=== PATIENT | female | born 1960 | race African-American/Black ===

== ENCOUNTER 2017-03-14 09:52 | Emergency (ER) | payer OTHER ==
[~2017-03-14] VITALS: Ht 165.1 cm; Wt 76.7 kg
[~2017-03-14 09:52] MED LIST: HYDR12.53 PO; HYDR453.4 TP; QUET50TA5 PO; SULF1TAB24 PO; TRAM-48 PO
[2017-03-14 09:57] VITALS: BP 145/94
--- NOTE | 2017-03-14 11:14 | PHYS DOC ---
Past Medical History Past Medical History: Anxiety, Hypertension, Other Additional Past Medical Histor: CHRONIC H/A Past Surgical History: No Surgical History Alcohol Use: None Drug Use: None Adult General Chief Complaint Chief Complaint: SKIN RASH/ABSCESS HPI HPI Patient is a 56 year old female presents emergency department stating that she was out pulling poison neal next to her back when she obtained some on her left forearm, left lower abdomen area, and right face. She states that she has been placing antibiotic ointment over the areas with no relief. She denies any drainage or discharge coming from the site. Patient does have bruising noted to the left forearm area. She is unsure how this occurred. She denies any falls traumas or any pain or discomfort in that area. Review of Systems Review of Systems Constitutional: Denies fever or chills [] Eyes: Denies change in visual acuity, redness, or eye pain [] HENT: Denies nasal congestion or sore throat [] Respiratory: Denies cough or shortness of breath [] Cardiovascular: No additional information not addressed in HPI [] GI: Denies abdominal pain, nausea, vomiting, bloody stools or diarrhea [] : Denies dysuria or hematuria [] Musculoskeletal: Denies back pain or joint pain. Bruising or discoloration noted to the left forearm. Integument: rash denies skin lesions [] Neurologic: Denies headache, focal weakness or sensory changes [] Endocrine: Denies polyuria or polydipsia [] Allergies Allergies Allergies Coded Allergies Type Severity Reaction Last Updated Verified Penicillins Allergy Intermediate hives 02/23/15 Yes Physical Exam Physical Exam Constitutional: Well developed, well nourished, no acute distress, non-toxic appearance. [] HENT: Normocephalic, atraumatic, bilateral external ears normal, oropharynx moist, no oral exudates, nose normal. [] Eyes: PERRLA, EOMI, conjunctiva normal, no discharge. [] Neck: Normal range of motion, no tenderness, supple, no stridor. [] Cardiovascular:Heart rate regular rhythm, no murmur [] Lungs & Thorax: Bilateral breath sounds clear to auscultation [] Abdomen: Bowel sounds normal, soft, no tenderness, no masses, no pulsatile masses. [] Skin: Warm, dry, no erythema, patient with pustular type rash noted on the left lower abdomen area. Patient with pustular area noted on the right jawline. Patient with bruising noted to the left forearm. Back: No tenderness Extremities: No tenderness, no cyanosis, no clubbing, ROM intact, no edema. Left radial pulse 2+ cap refill brisk less than 2 seconds. Neurologic: Alert and oriented X 3, normal motor function, normal sensory function, no focal deficits noted. [] Psychologic: Affect normal, judgement normal, mood normal. [] Current Patient Data Vital Signs Vital Signs Date Time Temp Pulse Resp B/P (MAP) Pulse Ox O2 Delivery O2 Flow Rate FiO2 03/14/17 09:57 97.7 55 18 98 Room Air 97.7 EKG EKG [] Radiology/Procedures Radiology/Procedures [][facility] [address] [place] [address] IMAGING REPORT Signed PATIENT: NINO DERAS ACCOUNT: [id number] : 1960 LOCATION: ER AGE: 56 SEX: F EXAM STATUS: REG ER ORD. PHYSICIAN: JAN ALFORD APRN REASON: bruising and discoloration PROCEDURE: FOREARM LEFT Indication bruising. Swelling. No history of injury. AP and lateral views of the left forearm were obtained. No bony abnormality is seen DICTATED and SIGNED BY: ISH HER MD DATE: 03/14/17 1112 CC: JAN ALFORD APRN; DOLLY PRUETT MD ~ Course & Med Decision Making Course & Med Decision Making Pertinent Labs and Imaging studies reviewed. (See chart for details) X-rays were negative for any bony abnormalities. Patient will be discharged home with prednisone with recommendations to use Benadryl if she has any itching or irritation. Patient will also be encouraged to use calamine lotion over the areas. The bruising area on the left forearm recommended ice packs on 20 minutes off 20 minutes several times a day. Tylenol or ibuprofen for pain and discomfort. Also recommended following up with her primary care physician in the next week. Patient was provided with signs and symptoms to return back to emergency department. Patient agrees with discharge instructions, treatment regimens and follow-up recommendations. [] Dragon Disclaimer Dragon Disclaimer This electronic medical record was generated, in whole or in part, using a voice recognition dictation system. Departure Departure Impression: Primary Impression: Contact dermatitis Disposition: 01 HOME, SELF-CARE Condition: STABLE Referrals: DOLLY PRUETT MD (PCP) Patient Instructions: Contact Dermatitis, [id number] Additional Instructions: Your x-rays are negative for any bony abnormalities. You may place ice packs on the area on the left forearm on 20 minutes off 20 minutes several times a day to help with pain and discomfort. This will also help with swelling. Medication as prescribed. You may also take Benadryl 25 mg every 6 hours. This medication will cause drowsiness do not take any be alert and oriented. Calamine lotion may be placed over the blistered areas. Follow-up to primary care physician in the next week. Return back to emergency percent symptoms become worse. Scripts Prednisone (PREDNISONE) 20 Mg Tablet 40 MG PO DAILY, #14 TAB Prov: JAN ALFORD APRN 03/14/17 JAN ALFORD APRN Mar 14, 2017 11:14
[2017-03-14] MEDS ORDERED: PRED20TA PO (11:20)
== END 2017-03-14 11:25 | disposition home or self-care (01) ==
LOC: ER 09:52
DX: L25.9 Unspecified contact dermatitis, unspecified cause (principal); I10 Essential (primary) hypertension; F41.9 Anxiety disorder, unspecified; G89.29 Other chronic pain; Z88.0 Allergy status to penicillin
CPT/HCPCS: 73090; 99284

== ENCOUNTER 2017-04-02 04:08 | Emergency (ER) | payer OTHER ==
[~2017-04-02] VITALS: Ht 165.1 cm; Wt 68.0 kg
[~2017-04-02 04:08] MED LIST changes: +PRED20TA PO
[2017-04-02 04:23] LABS: BILIRUBIN,URINE NEGATIVE (NEG); GLUCOSE,URINE NEGATIVE (NEG); NITRITE,URINE NEGATIVE (NEG); PH,URINE 6.5; PROTEIN,URINE NEGATIVE (NEG-TRACE); UROBILINOGEN,URINE 0.2 mg/dL (0.2 mg/dL)
--- NOTE | 2017-04-02 04:24 | PHYS DOC ---
Past Medical History Past Medical History: Anxiety, Hypertension, Other Additional Past Medical Histor: CHRONIC H/A Past Surgical History: No Surgical History Alcohol Use: None Drug Use: None Adult General Chief Complaint Chief Complaint: ABDOMINAL PAIN HPI HPI Patient is a 56 year old female who presents with burning and painful urination. Started 2 days ago and has worsened. Some back pain. No nausea or vomiting. No fever. No other complaints. No diarrhea. Review of Systems Review of Systems Constitutional: Denies fever or chills Eyes: Denies change in visual acuity, redness, or eye pain HENT: Denies nasal congestion or sore throat Respiratory: Denies cough or shortness of breath Cardiovascular: No chest pain GI: lower abdominal pain, No nausea, vomiting, bloody stools or diarrhea : Dysuria and frequency; no hematuria. Musculoskeletal: Denies back pain or joint pain Integument: Denies rash or skin lesions Neurologic: Denies headache, focal weakness or sensory changes Allergies Allergies Allergies Coded Allergies Type Severity Reaction Last Updated Verified Penicillins Allergy Intermediate hives 02/23/15 Yes Physical Exam Physical Exam Constitutional: Well developed, well nourished, no acute distress, non-toxic appearance. HENT: Normocephalic, atraumatic, bilateral external ears normal, oropharynx moist, no oral exudates, nose normal. Eyes: PERRLA, EOMI, conjunctiva normal, no discharge. Neck: Normal range of motion, no tenderness, supple, no stridor. Cardiovascular:Heart rate regular rhythm, no murmur Lungs & Thorax: Bilateral breath sounds clear to auscultation Abdomen: Bowel sounds normal, soft, no tenderness, no masses, no pulsatile masses. Skin: Warm, dry, no erythema, no rash. Back: No tenderness, no CVA tenderness. Extremities: No tenderness, no cyanosis, no clubbing, ROM intact, no edema. Neurologic: Alert and oriented X 3, normal motor function, normal sensory function, no focal deficits noted. Psychologic: Affect normal, judgement normal, mood normal. Current Patient Data Lab Values Laboratory Tests Test 04/02/17 04:19 Urine Collection Type Unknown Urine Color Yellow Urine Clarity Cloudy Urine pH 6.5 Urine Specific Isabella 1.025 Urine Protein Negative mg/dL (NEG-TRACE) Urine Glucose (UA) Negative mg/dL (NEG) Urine Ketones (Stick) Negative mg/dL (NEG) Urine Blood Negative (NEG) Urine Nitrite Negative (NEG) Urine Bilirubin Negative (NEG) Urine Urobilinogen Dipstick 0.2 mg/dL (0.2 mg/dL) Urine Leukocyte Esterase Small (NEG) Urine RBC 0 /HPF (0-2) Urine WBC 5-10 /HPF (0-4) Urine Squamous Epithelial Cells Many /LPF Urine Amorphous Sediment Present /HPF Urine Bacteria Moderate /HPF (0-FEW) Urine Mucus Marked /LPF Course & Med Decision Making Course & Med Decision Making Pertinent Labs reviewed. (See chart for details) Evaluated patient upon arrival. Abdomen soft with no evidence of acute surgical abdomen. UA sent. AT 0430 AM UA positive. Dosed with Macrobid here po. To follow up with PCP. I have spoken with the patient and/or caregivers. I have explained the patient' s condition, diagnosis and treatment plan based on the information available to me at this time. I have answered the patient's and/or caregiver's questions and addressed any concerns. The patient and/or caregivers have as good an understanding of the patient's diagnosis, condition and treatment plan as can be expected at this point. The patient's condition is stable and appropriate for discharge from the emergency department. The patient will pursue further outpatient evaluation with the primary care physician or other designated or consulting physician as outlined in the discharge instructions. The patient and/or caregivers are agreeable to this plan of care and follow-up instructions have been explained in detail. The patient and/or caregivers have received these instructions in written format and have expressed an understanding of the discharge instructions. The patient and/or caregivers are aware that any significant change in condition or worsening of symptoms should prompt an immediate return to this or the closest emergency department or a call to 911. Dragon Disclaimer Dragon Disclaimer This electronic medical record was generated, in whole or in part, using a voice recognition dictation system. Departure Departure Impression: Primary Impression: Urinary tract infection Disposition: HOME, SELF-CARE Condition: STABLE Referrals: DOLLY PRUETT MD (PCP) Scripts Nitrofurantoin Monohyd/M-Cryst (MACROBID 100 MG CAPSULE) 100 Mg Capsule 1 CAP PO BID, #14 CAP Prov: YESSENIA KABA MD 04/02/17 YESSENIA KABA MD Apr 02, 2017 04:24
[2017-04-02 04:32] LABS: RBC,URINE 0 /HPF (0-2)
[2017-04-02 04:33] LABS: BACTERIA,URINE MODERATE /HPF (0-FEW); SQUAMOUS EPITHELIAL CELL,UR MANY /LPF
[2017-04-02] MEDS ORDERED: NITR100C62 PO (04:37)
[2017-04-02] MEDS ORDERED: PHEN-318 PO (04:44)
[2017-04-02] MEDS ORDERED: PHENAZOPYRIDINE 200 MG TABLET. PO ONE (05:00)
[2017-04-02] MEDS ORDERED: NITROFURANTOIN MONOHYD/M-CRYST 100 MG CAPSULE. PO ONE (05:00)
== END 2017-04-02 05:02 | disposition home or self-care (01) ==
LOC: ER 04:08
DX: N39.0 Urinary tract infection, site not specified (principal); I10 Essential (primary) hypertension; F41.9 Anxiety disorder, unspecified; G89.29 Other chronic pain; Z88.0 Allergy status to penicillin
CPT/HCPCS: 81001; 87086; 99284

== ENCOUNTER 2017-06-18 17:01 | Emergency (ER) | payer OTHER ==
[~2017-06-18] VITALS: Ht 165.1 cm; Wt 72.6 kg
[~2017-06-18 17:01] MED LIST changes: +NITR100C62 PO; +PHEN-318 PO
[2017-06-18 17:14] VITALS: BP 120/80
--- NOTE | 2017-06-18 17:21 | PHYS DOC ---
Past Medical History Past Medical History: Anxiety, Hypertension, Other Additional Past Medical Histor: CHRONIC H/A Past Surgical History: No Surgical History Alcohol Use: None Drug Use: None Adult General Chief Complaint Chief Complaint: HAND PROBLEM HPI HPI Patient is a 57 year old female presents the ED for tetanus shot. Patient states she had a splinter in her hand and went to her primary care doctor who was unable to give a her a tetanus shot. Splinter removed at home. States she presents the ED for a tetanus shot today. Denies fever, nausea/vomiting, retained foreign body, chest pain or shortness of breath, swelling, red streaking, paresthesias or weakness. Review of Systems Review of Systems Constitutional: Denies fever or chills [] Eyes: Denies change in visual acuity, redness, or eye pain [] HENT: Denies nasal congestion or sore throat [] Respiratory: Denies cough or shortness of breath [] Cardiovascular: No additional information not addressed in HPI [] GI: Denies abdominal pain, nausea, vomiting, bloody stools or diarrhea [] : Denies dysuria or hematuria [] Musculoskeletal: Denies back pain or joint pain [] Integument: Denies rash or skin lesions [] Neurologic: Denies headache, focal weakness or sensory changes [] Endocrine: Denies polyuria or polydipsia [] Current Medications Current Medications Current Medications Medications (Trade) Dose Ordered Sig/Severo Start Time Stop Time Status Last Admin Dose Admin Diphtheria/ Tetanus/Acell Pertussis (Boostrix) 0.5 ml ONCE ONCE 06/18/17 17:45 06/18/17 17:46 DC 06/18/17 17:50 0.5 ML Tetanus/ Diphtheria Toxoids (Tenivac Syringe) 0.5 ml ONCE ONCE 06/18/17 17:30 06/18/17 17:31 DC Allergies Allergies Allergies Coded Allergies Type Severity Reaction Last Updated Verified Penicillins Allergy Intermediate hives 02/23/15 Yes Physical Exam Physical Exam Constitutional: Well developed, well nourished, no acute distress, non-toxic appearance. [] HENT: Normocephalic, atraumatic, bilateral external ears normal, oropharynx moist, no oral exudates, nose normal. [] Eyes: PERRLA, EOMI, conjunctiva normal, no discharge. [] Neck: Normal range of motion, no tenderness, supple, no stridor. [] Cardiovascular:Heart rate regular rhythm, no murmur [] Lungs & Thorax: Bilateral breath sounds clear to auscultation [] Abdomen: Bowel sounds normal, soft, no tenderness, no masses, no pulsatile masses. [] Skin: Warm, dry, no erythema, no rash. [] Back: No tenderness, no CVA tenderness. [] Extremities: NO PALPABLE RETAINED SPLINTER TO LEFT HAND. NO OVERLYING SKIN CHANGES. No tenderness, no cyanosis, no clubbing, ROM intact, no edema. [] Neurologic: Alert and oriented X 3, normal motor function, normal sensory function, no focal deficits noted. [] Psychologic: Affect normal, judgement normal, mood normal. [] Current Patient Data Vital Signs Vital Signs Date Time Temp Pulse Resp B/P (MAP) Pulse Ox O2 Delivery O2 Flow Rate FiO2 06/18/17 17:14 98.2 76 20 97 Room Air 98.2 EKG EKG [] Radiology/Procedures Radiology/Procedures [] Course & Med Decision Making Course & Med Decision Making Pertinent Labs and Imaging studies reviewed. (See chart for details) [] Dragon Disclaimer Dragon Disclaimer This electronic medical record was generated, in whole or in part, using a voice recognition dictation system. Departure Departure Impression: Primary Impression: Tetanus-diphtheria vaccination administered at current visit Disposition: 01 HOME, SELF-CARE Condition: STABLE Referrals: DOLLY PRUETT MD (PCP) Patient Instructions: Tetanus and Diphtheria Vaccine ENEDINA SANTANA Jun 18, 2017 17:21
[2017-06-18] MEDS ORDERED: TETANUS AND DIPHTHERIA TOX/PF 0.5 ML DISP.SYRIN. VAX IM ONE (17:30)
[2017-06-18] MEDS ORDERED: DIPHTH,PERTUSS(ACELL),TET TOX 0.5 ML DISP.SYRIN. VAX IM ONE (17:45)
== END 2017-06-18 17:53 | disposition home or self-care (01) ==
LOC: ER 17:01
DX: Z23 Encounter for immunization (principal); I10 Essential (primary) hypertension; G89.29 Other chronic pain; Z88.0 Allergy status to penicillin
CPT/HCPCS: 90471; 90715; 99283-25

== ENCOUNTER 2018-01-14 02:39 | Emergency (ER) | payer OTHER | END 2018-01-14 03:15 | disposition home or self-care (01) | LOC: ER 02:39 | DX: J40 Bronchitis, not specified as acute or chronic (principal); I10 Essential (primary) hypertension; G89.29 Other chronic pain; Z88.0 Allergy status to penicillin | CPT/HCPCS: 99283 ==

== ENCOUNTER 2018-01-22 21:10 | Emergency (ER) | payer OTHER ==
[2018-01-22] MEDS: IPRATRPIUM/ALBUTEROL 0.5/2.5MG 3 ML NEBU. NEB (22:21)
== END 2018-01-22 23:08 | disposition home or self-care (01) ==
LOC: ER 21:10
DX: J40 Bronchitis, not specified as acute or chronic (principal); I10 Essential (primary) hypertension; Z79.899 Other long term (current) drug therapy; Z88.0 Allergy status to penicillin
CPT/HCPCS: 71046; 94640; 99284; J7620

== ENCOUNTER 2018-02-11 15:44 | Emergency (ER) | payer OTHER ==
[2018-02-11] MEDS: diphenhydrAMINE HCL 25 MG CAPSULE PO (16:45)
[2018-02-11] MEDS: predniSONE 20 MG TABLET PO (16:48)
== END 2018-02-11 16:53 | disposition home or self-care (01) ==
LOC: ER 16:53
DX: L25.9 Unspecified contact dermatitis, unspecified cause (principal); I10 Essential (primary) hypertension; G89.29 Other chronic pain; Z88.0 Allergy status to penicillin
CPT/HCPCS: 99283; J7512; Q0163

== ENCOUNTER 2018-04-23 00:29 | Observation (INO) | payer OTHER ==
[2018-04-23] VITALS (8 sets, daily range): BP systolic 91–156; BP diastolic 57–92
[~2018-04-23] VITALS: Ht 167.6 cm; Wt 75.4 kg
[~2018-04-23 00:29] MED LIST changes: +AZIT250T6 PO; +GUAI118L59 PO; +PROAIR HFA8.5 GM INH; +PROM5SYR2 PO
[2018-04-23] MEDS ORDERED: DIPHTH,PERTUSS(ACELL),TET TOX 0.5 ML DISP.SYRIN. VAX IM ONE (01:00)
[2018-04-23] MEDS ORDERED: MORPHINE SULFATE 4 MG/ML VIAL. IV ONE ×2 (01:00→02:30)
[2018-04-23] MEDS ORDERED: ONDANSETRON PF 4 MG/2 ML VIAL. IV ONE (01:00)
[2018-04-23 01:09] LABS: BASO # 0.2 x10^3/uL (0.0-0.2); BASO % 1 % (0-3); EOS # 0.1 x10^3/uL (0.0-0.7); EOS % 1 % (0-3); HEMATOCRIT 36.5 % (36.0-47.0); HEMOGLOBIN 12.4 g/dL (12.0-15.5); LYMPH # 3.6 x10^3/uL (1.0-4.8); LYMPH % 26 % (24-48); MEAN CORPUSCULAR HEMOGLOBIN 34 pg (25-35); MEAN CORPUSCULAR HGB CONC 34 g/dL (31-37); MEAN CORPUSCULAR VOLUME 101 fL (79-100); MONO # 0.5 x10^3/uL (0.0-1.1); MONO % 4 % (0-9); NEUT # 9.7 x10^3uL (1.8-7.7); NEUT % 68 % (31-73); PLATELET COUNT 305 x10^3/uL (140-400); RED BLOOD COUNT 3.63 x10^6/uL (3.50-5.40); RED CELL DISTRIBUTION WIDTH 16.4 % (11.5-14.5); WHITE BLOOD COUNT 14.2 x10^3/uL (4.0-11.0)
[2018-04-23] MEDS ORDERED: IOHEXOL 300 MG/ML 100ML VIAL. IV ONE (01:15)
[2018-04-23 01:16] LABS: CALCIUM 8.5 mg/dL (8.5-10.1); CREATININE 1.1 mg/dL (0.6-1.0); GFR 62.2; POTASSIUM 3.6 mmol/L (3.5-5.1)
[2018-04-23 01:22] LABS: ALBUMIN 3.7 g/dL (3.4-5.0); DIRECT BILIRUBIN 0.1 mg/dL (0.0-0.2); TOTAL BILIRUBIN 0.4 mg/dL (0.2-1.0); TOTAL PROTEIN 7.4 g/dL (6.4-8.2)
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
[2018-04-23] MEDS ORDERED: LIDOCAINE 1% PF 2 ML VIAL. ID ONE (01:30)
[2018-04-23] MEDS ORDERED: CONTRAST GIVEN. MC PRN (01:45)
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
[2018-04-23] MEDS ORDERED: TETRACAINE 0.5% OPHTH SOLUTION 4ML BOTTLE. OU ONE (02:30)
[2018-04-23] MEDS ORDERED: FLUORESCEIN OPHTH TEST STRIP. ONE (02:43)
[2018-04-23] MEDS ORDERED: FLUORESCEIN OPHTH TEST STRIP. OU ONE (03:00)
[2018-04-23] MEDS ORDERED: ONDANSETRON PF 4 MG/2 ML VIAL. IV PRN (03:00)
[2018-04-23] MEDS ORDERED: IV RINGERS,LACTATED 1000ML 1,000 ML IV ONE (03:00)
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
[2018-04-23] MEDS: MORPHINE SULFATE 4 MG/ML VIAL. IV PRN ×2 (04:08→07:15)
--- NOTE | 2018-04-23 06:04 | EKG ---
[facility] [address] [place] [address] Test Date: 2018-04-23 Test Time: 03:37:21 Pat Name: NINO DERAS Department: Room: 444 1 Gender: F Child Study Team Director: STEPHANIE : 1960 Requested By: CHRISTOS AMAYA Order Number: [id number] Reading MD: Shun Oliveira MD Measurements Intervals [place] Rate: 64 P: 145 ID: [id number] QRS: -163 QRSD: 70 T: 177 QT: 434 QTc: 452 Interpretive Statements SR LIMB LEAD MISPLACEMENT Electronically Signed On 04-23-2018 11:00:08 CDT by Shun Oliveira MD
[2018-04-23] MEDS ORDERED: IV NORMAL SALINE 500ML BAG 500 ML IV ONE (08:30)
[2018-04-23] MEDS: POLYMYXIN/TRIMETHOPRIM OPHTH SOLUTION 10ML BOTTLE. OD SCH ×4 (08:37→19:59)
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
[2018-04-23] MEDS: HYDROcodone/APAP 5/325MG 1 TAB TABLET PO PRN ×2 (18:17→20:00)
[2018-04-23] MEDS: QUEtiapine 25 MG TABLET. PO SCH (19:59)
[2018-04-24 02:51] VITALS: BP 110/75
[2018-04-24 06:45] LABS: BASO # 0.1 x10^3/uL (0.0-0.2); BASO % 1 % (0-3); EOS # 0.1 x10^3/uL (0.0-0.7); EOS % 2 % (0-3); HEMATOCRIT 30.3 % (36.0-47.0); HEMOGLOBIN 10.3 g/dL (12.0-15.5); LYMPH # 2.7 x10^3/uL (1.0-4.8); LYMPH % 30 % (24-48); MEAN CORPUSCULAR HEMOGLOBIN 34 pg (25-35); MEAN CORPUSCULAR HGB CONC 34 g/dL (31-37); MEAN CORPUSCULAR VOLUME 100 fL (79-100); MONO # 0.8 x10^3/uL (0.0-1.1); MONO % 9 % (0-9); NEUT # 5.4 x10^3uL (1.8-7.7); NEUT % 59 % (31-73); PLATELET COUNT 236 x10^3/uL (140-400); RED BLOOD COUNT 3.03 x10^6/uL (3.50-5.40); RED CELL DISTRIBUTION WIDTH 16.3 % (11.5-14.5); WHITE BLOOD COUNT 9.2 x10^3/uL (4.0-11.0)
[2018-04-24 06:55] LABS: CREATININE 0.8 mg/dL (0.6-1.0); GFR 89.8
[2018-04-24 07:00] VITALS: BP 140/83
[2018-04-24] MEDS: HYDROcodone/APAP 5/325MG 1 TAB TABLET PO PRN ×4 (08:44→22:02)
[2018-04-24] MEDS: POLYMYXIN/TRIMETHOPRIM OPHTH SOLUTION 10ML BOTTLE. OD SCH ×4 (08:45→21:36)
[2018-04-24 11:00] VITALS: BP 118/61
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
[2018-04-24] MEDS ORDERED: POTASSIUM CHLORIDE 20 MEQ TABLET.ER. PO ONE (14:15)
[2018-04-24 15:00] VITALS: BP 112/55
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
[2018-04-24 19:00] VITALS: BP 149/91
[2018-04-24] MEDS: QUEtiapine 25 MG TABLET. PO SCH (21:36)
[2018-04-24] MEDS: DOCUSATE SODIUM 100 MG CAPSULE. PO PRN (21:36)
[2018-04-24 22:27] VITALS: BP 171/99
[2018-04-25 03:00] VITALS: BP 121/79
[2018-04-25] MEDS: HYDROcodone/APAP 5/325MG 1 TAB TABLET PO PRN ×3 (05:36→14:31)
[2018-04-25 07:00] VITALS: BP 149/98
[2018-04-25] MEDS: DOCUSATE SODIUM 100 MG CAPSULE. PO PRN (09:01)
[2018-04-25] MEDS: POLYMYXIN/TRIMETHOPRIM OPHTH SOLUTION 10ML BOTTLE. OD SCH ×2 (09:01→12:04)
[2018-04-25] MEDS ORDERED: FLUT9.9S NS (10:05)
[2018-04-25] MEDS ORDERED: VALS160T3 PO (10:05)
[2018-04-25] MEDS ORDERED: OMEP20CA9 PO (10:05)
[2018-04-25] MEDS ORDERED: DIAZEPAM10 MG PO (10:05)
[2018-04-25] MEDS ORDERED: FLUO20TA11 PO (10:05)
[2018-04-25] MEDS ORDERED: AMIT10TA PO (10:05)
[2018-04-25] MEDS ORDERED: CETI10TA16 PO (10:05)
[2018-04-25 10:59] VITALS: BP 135/83
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
== END 2018-04-25 14:45 | disposition home or self-care (01) ==
LOC: ER 00:29 → EEVIPCON 00:32 → 4 NORTH 03:20 → EEVIPCON 03:20 → UNDODISOB 04-25 14:45
PROVIDERS: ADMIT Internal Medicine; ATTEND Internal Medicine
DX: S22.42XA Multiple fractures of ribs, left side, initial encounter for closed fracture (principal); S51.011A Laceration without foreign body of right elbow, initial encounter; S05.01XA Injury of conjunctiva and corneal abrasion without foreign body, right eye, initial encounter; N64.4 Mastodynia; N63.0 Unspecified lump in unspecified breast; I10 Essential (primary) hypertension; G89.29 Other chronic pain; H04.123 Dry eye syndrome of bilateral lacrimal glands; H11.33 Conjunctival hemorrhage, bilateral; H43.399 Other vitreous opacities, unspecified eye; X58.XXXA Exposure to other specified factors, initial encounter; Y93.89 Activity, other specified; Y92.89 Other specified places as the place of occurrence of the external cause; Y99.8 Other external cause status; R55 Syncope and collapse; Z82.49 Family history of ischemic heart disease and other diseases of the circulatory system
CPT/HCPCS: 36415; 70450; 70486; 71260; 72125; 73080; 74177; 80048; 80076; 83690; 84484; 85025; 90471; 90715; 93005; 96361; 96374; 96375; 96376; 99285; G0378; G0379; G0480; J2270; J2405; J7040; Q9967; J7120

== ENCOUNTER 2018-05-04 16:34 | Emergency (ER) | payer OTHER ==
[~2018-05-04] VITALS: Ht 165.1 cm; Wt 70.3 kg
[~2018-05-04 16:34] MED LIST changes: +AMIT10TA PO; +CETI10TA16 PO; +DIAZEPAM10 MG PO; +FLUO20TA11 PO; +FLUT9.9S NS; +OMEP20CA9 PO; +VALS160T3 PO
[2018-05-04 17:30] VITALS: BP 185/99
[2018-05-04] MEDS ORDERED: NEOMY/BACITR/POLYMYXIN OINT PACKET. TP ONE (18:45)
--- NOTE | 2018-05-04 18:51 | PHYS DOC ---
Past Medical History Past Medical History: Anxiety, Hypertension, Unknown Additional Past Medical Histor: CHRONIC H/A Past Surgical History: No Surgical History Alcohol Use: None Drug Use: None Adult General Chief Complaint Chief Complaint: SUTURE/STAPLE REMOVAL HPI HPI Patient is a 57 year old [f__sex] who presents with [] Review of Systems Review of Systems Constitutional: Denies fever or chills [] Eyes: Denies change in visual acuity, redness, or eye pain [] HENT: Denies nasal congestion or sore throat [] Respiratory: Denies cough or shortness of breath [] Cardiovascular: No additional information not addressed in HPI [] GI: Denies abdominal pain, nausea, vomiting, bloody stools or diarrhea [] : Denies dysuria or hematuria [] Musculoskeletal: Denies back pain or joint pain [] Integument: Denies rash or skin lesions [] Neurologic: Denies headache, focal weakness or sensory changes [] Endocrine: Denies polyuria or polydipsia [] All other systems were reviewed and found to be within normal limits, except as documented in this note. Current Medications Current Medications Current Medications Medications (Trade) Dose Ordered Sig/Severo Start Time Stop Time Status Last Admin Dose Admin Neomycin/ Polymyxin/ Bacitracin (Triple Antibiotic Ointment) 1 pkt 1X ONCE 05/04/18 18:45 05/04/18 18:46 DC Allergies Allergies Allergies Coded Allergies Type Severity Reaction Last Updated Verified Penicillins Allergy Intermediate hives 02/23/15 Yes Physical Exam Physical Exam Constitutional: Well developed, well nourished, no acute distress, non-toxic appearance. [] HENT: Normocephalic, atraumatic, bilateral external ears normal, oropharynx moist, no oral exudates, nose normal. [] Eyes: PERRLA, EOMI, conjunctiva normal, no discharge. [] Neck: Normal range of motion, no tenderness, supple, no stridor. [] Cardiovascular:Heart rate regular rhythm, no murmur [] Lungs & Thorax: Bilateral breath sounds clear to auscultation [] Abdomen: Bowel sounds normal, soft, no tenderness, no masses, no pulsatile masses. [] Skin: Warm, dry, no erythema, no rash. [] Back: No tenderness, no CVA tenderness. [] Extremities: No tenderness, no cyanosis, no clubbing, ROM intact, no edema. [] Neurologic: Alert and oriented X 3, normal motor function, normal sensory function, no focal deficits noted. [] Psychologic: Affect normal, judgement normal, mood normal. [] Current Patient Data Vital Signs Vital Signs Date Time Temp Pulse Resp B/P (MAP) Pulse Ox O2 Delivery O2 Flow Rate FiO2 05/04/18 17:30 98.5 80 18 185/99 (127) 97 Room Air 98.5 EKG EKG [] Radiology/Procedures Radiology/Procedures [] Course & Med Decision Making Course & Med Decision Making Pertinent Labs and Imaging studies reviewed. (See chart for details) [] Dragon Disclaimer Dragon Disclaimer This electronic medical record was generated, in whole or in part, using a voice recognition dictation system. Departure Departure Impression: Primary Impression: Visit for suture removal Additional Impression: Wound infection Disposition: 01 HOME, SELF-CARE Condition: STABLE Referrals: DOLLY PRUETT MD (PCP) Patient Instructions: Suture Removal-Brief, Wound Care, [id number] Additional Instructions: Fill prescriptions and use them as directed. Remove the bandage was applied today tomorrow and begin changing dressings twice a day and as needed. Follow- up with her primary care doctor next week. Return to the ER for symptoms worsen. Problem Qualifiers NIEVES CRISOSTOMO APRN May 04, 2018 18:50
== END 2018-05-04 19:23 | disposition home or self-care (01) ==
LOC: ER 16:34
DX: S51.011D Laceration without foreign body of right elbow, subsequent encounter (principal); I10 Essential (primary) hypertension; X58.XXXD Exposure to other specified factors, subsequent encounter
CPT/HCPCS: 99282

== ENCOUNTER 2019-04-13 18:07 | Emergency (ER) | payer MEDICAID, OTHER ==
[~2019-04-13] VITALS: Ht 160 cm; Wt 70.3 kg
[~2019-04-13 18:07] MED LIST changes: +ALBU2.5V8 INH; -HYDR12.53 PO; +HYDR12.575 PO; +OMEP20CA10 PO; -OMEP20CA9 PO; -PROAIR HFA8.5 GM INH
[2019-04-13 18:32] VITALS: BP 192/108
--- NOTE | 2019-04-13 18:35 | PHYS DOC ---
Past Medical History Past Medical History: Anxiety, Hypertension, Unknown Additional Past Medical Histor: CHRONIC H/A Past Surgical History: No Surgical History Smoking: Cigarettes Alcohol Use: None Drug Use: None Adult General Chief Complaint Chief Complaint: DENTAL PROBLEM HPI HPI 58-year-old female presents with report of continued bleeding from recent dental extraction site to right maxillary molar. Patient reports extraction was performed this morning at a dental clinic. Patient reports she was given instructions that it would bleed but had taken a nap and had significant blood on her pillow. Patient became concerned and therefore presents to the ER. And also reporting her dental block has since worn off and ibuprofen is not currently covering her pain. Denies any fever or chills. Review of Systems Review of Systems Constitutional: Denies fever or chills HENT: Denies nasal congestion or sore throat; reports dentalgia and bleeding from site of recent dental extraction GI: Denies abdominal pain, nausea, or vomiting Integument: Denies rash or skin lesions Neurologic: Denies headache, focal weakness or sensory changes Complete systems were reviewed and found to be within normal limits, except as documented in this note. Current Medications Current Medications Current Medications Medications (Trade) Dose Ordered Sig/Severo Start Time Stop Time Status Last Admin Dose Admin Acetaminophen/ Codeine Phosphate (Tylenol #3) 1 tab 1X ONCE 04/13/19 18:45 04/13/19 18:35 DC Acetaminophen/ Hydrocodone Bitart (Lortab 5/325) 1 tab 1X ONCE 04/13/19 18:45 04/13/19 18:46 DC 04/13/19 18:50 1 TAB Allergies Allergies Allergies Coded Allergies Type Severity Reaction Last Updated Verified Penicillins Allergy Intermediate hives 02/23/15 Yes Physical Exam Physical Exam Constitutional: Well developed, well nourished, no acute distress, non-toxic appearance HENT: Normocephalic, atraumatic, oropharynx moist, right maxillary 2nd molar extraction site noted, some scant oozing but no significant bleeding currently, some gingival edema noted, tender to palpation, prior dental extractions noted throughout Eyes: Conjunctiva normal, no discharge Neck: Normal range of motion, supple Lungs & Thorax: No respiratory distress Skin: Warm, dry, no erythema, no rash Extremities: No tenderness, ROM intact, no edema Neurologic: Alert and oriented X 3, no focal deficits noted Psychologic: Affect normal, judgement normal Current Patient Data Vital Signs Vital Signs Date Time Temp Pulse Resp B/P (MAP) Pulse Ox O2 Delivery O2 Flow Rate FiO2 04/13/19 18:50 16 04/13/19 18:32 98.6 68 192/108 (136) 97 Room Air 98.6 EKG EKG [] Radiology/Procedures Radiology/Procedures [] Course & Med Decision Making Course & Med Decision Making Patient presents with concern for continued bleeding from site of dental extraction which was performed this morning. Patient also reporting some pain as her dental block has since worn off. Patient trialed ibuprofen without significant improvement. No significant bleeding noted. Patient advised to use chlorhexidine mouth rinse. Pain addressed. Patient noted to have some elevated blood pressure. Patient does report history of hypertension for which she was prescribed some blood pressure medication. Patient reports she has not taken her medication but will upon returning home. Patient stable for discharge with outpatient follow-up with PCP/dentist. Discussed findings and plan with patient, who acknowledges understanding and agreement. Dragon Disclaimer Dragon Disclaimer This electronic medical record was generated, in whole or in part, using a voice recognition dictation system. Departure Departure Impression: Primary Impression: Dentalgia Additional Impressions: Status post tooth extraction Hypertension Disposition: HOME, SELF-CARE Condition: STABLE Referrals: DOLLY PRUETT MD (PCP) Patient Instructions: Dental Extraction, Care After, Hypertension, [id number], Toothache-Brief Additional Instructions: Take your blood pressure medication upon returning home Scripts Chlorhexidine Gluconate (CHLORHEXIDINE GLUCONATE) 473 Ml Mouthwash 473 ML MM BID, #1 BOTTLE Prov: ELANA DICKEY DO 04/13/19 Hydrocodone/Apap 5-325 (NORCO 5-325 TABLET) 1 Each Tablet 0.5 TAB PO PRN Q6HRS PRN for PAIN, #4 TAB 0 Refills Prov: ELANA DICKEY DO 04/13/19 Problem Qualifiers Additional Impressions: Hypertension Hypertension type: unspecified Qualified Codes: I10 - Essential (primary) hypertension ELANA DICKEY DO Apr 13, 2019 18:35
[2019-04-13] MEDS ORDERED: CHLO473M MM (18:44)
[2019-04-13] MEDS ORDERED: HYDR-3164 PO (18:44)
[2019-04-13] MEDS ORDERED: HYDROcodone/APAP 5/325MG 1 TAB TABLET PO ONE (18:45)
[2019-04-13] MEDS ORDERED: ACETAMINOPHEN/CODEINE 300/30MG TABLET. PO ONE (18:45)
== END 2019-04-13 18:53 | disposition home or self-care (01) ==
LOC: ER 18:07
DX: K91.840 Postprocedural hemorrhage of a digestive system organ or structure following a digestive system procedure (principal); I10 Essential (primary) hypertension; F17.210 Nicotine dependence, cigarettes, uncomplicated; G89.29 Other chronic pain; Z88.0 Allergy status to penicillin
CPT/HCPCS: 99283

== ENCOUNTER 2019-05-12 06:36 | Emergency (ER) | payer MEDICAID ==
[~2019-05-12] VITALS: Ht 167.6 cm; Wt 72.6 kg
[~2019-05-12 06:36] MED LIST changes: +CHLO473M MM; +HYDR-3164 PO
[2019-05-12 06:45] VITALS: BP 121/90
[2019-05-12] MEDS ORDERED: ALBU2.5V8 INH (07:02)
[2019-05-12] MEDS ORDERED: BENZ100C PO (07:02)
[2019-05-12] MEDS ORDERED: METH4TAB2 PO (07:02)
[2019-05-12] MEDS ORDERED: HYDR25TA PO (07:02)
[2019-05-12] MEDS ORDERED: AZIT250T PO (07:02)
--- NOTE | 2019-05-12 07:02 | PHYS DOC ---
Past Medical History Past Medical History: Anxiety, Hypertension, Unknown Additional Past Medical Histor: CHRONIC H/A Past Surgical History: No Surgical History Alcohol Use: None Drug Use: None Adult General Chief Complaint Chief Complaint: SKIN PROBLEM HPI HPI Patient is a 58 year old female who presents with turning of rash. Patient complaining of pruritic rash in bilateral upper extremity. Patient complaining of pruritic rash on bilateral forearms states she worked at at her yard 4 days ago and thinks she had poison oaks or poison neal. Patient denies fever and chills and states she had the same problem previously. Review of Systems Review of Systems Constitutional: Denies fever or chills [] Eyes: Denies change in visual acuity, redness, or eye pain [] HENT: Denies nasal congestion or sore throat [] Respiratory: Denies cough or shortness of breath [] Cardiovascular: No additional information not addressed in HPI [] GI: Denies abdominal pain, nausea, vomiting, bloody stools or diarrhea [] : Denies dysuria or hematuria [] Musculoskeletal: Denies back pain or joint pain [] Integument: Reports rash Neurologic: Denies headache, focal weakness or sensory changes [] Endocrine: Denies polyuria or polydipsia [] All other systems were reviewed and found to be within normal limits, except as documented in this note. Allergies Allergies Allergies Coded Allergies Type Severity Reaction Last Updated Verified Penicillins Allergy Intermediate hives 02/23/15 Yes Physical Exam Physical Exam Constitutional: Well developed, well nourished, mild distress, non-toxic appearance. [] HENT: Normocephalic, atraumatic. Eyes: PERRLA, EOMI, conjunctiva normal, no discharge. [] Neck: Normal range of motion, no tenderness, supple, no stridor. [] Cardiovascular:Heart rate regular rhythm, no murmur [] Lungs & Thorax: Bilateral breath sounds clear to auscultation [] Skin: Warm, dry, pruritic rash of bilateral forearm, more in the right side Back: No tenderness, no CVA tenderness. [] Extremities: No tenderness, no cyanosis, no clubbing, ROM intact, no edema. [] Neurologic: Alert and oriented X 3, no focal deficits noted. [] Current Patient Data Vital Signs Vital Signs Date Time Temp Pulse Resp B/P (MAP) Pulse Ox O2 Delivery O2 Flow Rate FiO2 9/15/19 06:45 97.6 83 14 121/90 (100) 99 Room Air 97.6 EKG EKG [] Radiology/Procedures Radiology/Procedures [] Course & Med Decision Making Course & Med Decision Making discharge: I've spoken with the patient and/or caregivers. I've explained the patient's condition, diagnosis and treatment plan based on information available to me at this time. I've answered the patient's and/or caregivers questions and addressed any concerns. The patient and/or caregivers have a good understanding the patient's diagnosis, condition and treatment plan as can be expected at this point. Vital signs have been stabilized. The patient's condition is stable for discharge from the emergency department. The patient will pursue further outpatient evaluation with her primary care provider or other designated consulting physician as outlined in the discharge instructions. Patient and/or caregivers are agreeable to this plan of care and follow-up instructions have been explained in detail. The patient and/or caregivers have received these instructions in written format and expressed understanding of these discharge instructions. The patient and her caregivers are aware that if any significant change in condition or worsening of symptoms should prompt him to immediately return to this of the closest emergency department. If an emergent department is not readily available I would encourage him to call 911. Dragon Disclaimer Dragon Disclaimer This electronic medical record was generated, in whole or in part, using a voice recognition dictation system. Departure Departure Impression: Primary Impression: Contact dermatitis Additional Impression: Acute bronchitis Disposition: HOME, SELF-CARE (at [phone]) Condition: STABLE Referrals: DOLLY PRUETT MD (PCP) Patient Instructions: Acute Bronchitis, Cough, Adult, Poison [place] Additional Instructions: Drink plenty of liquids Follow-up with your primary care physician in 3-5 days Return to ER if not getting better Scripts Azithromycin (ZITHROMAX) 250 Mg Tablet 1 PKG PO UD for infection, #1 PKG Prov: CARLITOS SORIANO MD 05/12/19 Benzonatate (TESSALON PERLE) 100 Mg Capsule 1 CAP PO TID for cough, #21 CAP Prov: CARLITOS SORIANO MD 05/12/19 Albuterol Sulfate (PROAIR HFA INHALER) 8.5 Gm Hfa.aer.ad 2 PUFF INH PRN Q6HRS PRN for SHORTNESS OF BREATH, #1 INHALER 0 Refills Prov: CARLITOS SORIANO MD 05/12/19 Methylprednisolone (MEDROL) 4 Mg Tab.ds.pk 1 PKG PO UD for inflammation, #1 PKG Prov: CARLITOS SORIANO MD 05/12/19 Hydroxyzine Hcl (HYDROXYZINE HCL) 25 Mg Tablet 1 TAB PO TID PRN for itching, #30 TAB Prov: CARLITOS SORIANO MD 05/12/19 Problem Qualifiers Primary Impression: Contact dermatitis Contact dermatitis type: irritant Contact dermatitis trigger: unspecified trigger Qualified Codes: L24.9 - Irritant contact dermatitis, unspecified cause Additional Impression: Acute bronchitis Bronchitis organism: unspecified organism Qualified Codes: J20.9 - Acute bronchitis, unspecified CARLITOS SORIANO MD May 12, 2019 07:02
== END 2019-05-12 07:12 | disposition home or self-care (01) ==
LOC: ER 06:36
DX: L24.9 Irritant contact dermatitis, unspecified cause (principal); J20.9 Acute bronchitis, unspecified; F41.9 Anxiety disorder, unspecified; I10 Essential (primary) hypertension; Z88.0 Allergy status to penicillin
CPT/HCPCS: 99283; 99285-25

== ENCOUNTER 2020-03-03 17:42 | Emergency (ER) | payer MEDICAID ==
[~2020-03-03] VITALS: Ht 165.1 cm; Wt 70.4 kg
[~2020-03-03 17:42] MED LIST changes: +AZIT250T PO; +BENZ100C PO; +HYDR25TA PO; +METH4TAB2 PO; -OMEP20CA10 PO; +OMEP20CA16 PO
[2020-03-03 18:20] VITALS: BP 121/90
[2020-03-03] MEDS ORDERED: DOXY100C2 PO (18:28)
[2020-03-03] MEDS ORDERED: MUPI22OI2 TP (18:28)
--- NOTE | 2020-03-03 18:29 | PHYS DOC ---
Past Medical History Past Medical History: Hypertension Additional Past Medical Histor: CHRONIC H/A (MATILDE CARTER APRN) Past Surgical History: No Surgical History (MATILDE CARTER APRN) Smoking Status: Never Smoker Alcohol Use: None Drug Use: None (MATILDE CARTER APRN) General Adult EDM: Chief Complaint: Congestion HPI: HPI: Patient is a 59 year old female presents to the emergency room for evaluation of sinus infection and sores in her nose for the past week. She states it gets sores in her nose from dust mites every summer if she does not clean out her air ducts in her home. She reports sinus pressure and nasal congestion, is using Flonase without relief. Denies fevers, cough or shortness of breath. (MATILDE CARTER APRN) Review of Systems: Review of Systems: Constitutional: Denies fever or chills. [] Eyes: Denies change in visual acuity. [] HENT: Reports nasal congestion. [] Respiratory: Denies cough or shortness of breath. [] Cardiovascular: Denies chest pain or edema. [] GI: Denies abdominal pain, nausea, vomiting, bloody stools or diarrhea. [] : Denies dysuria. [] Musculoskeletal: Denies back pain or joint pain. [] Integument: Denies rash. [] Neurologic: Denies headache, focal weakness or sensory changes. [] Endocrine: Denies polyuria or polydipsia. [] Lymphatic: Denies swollen glands. [] Psychiatric: Denies depression or anxiety. [] (MATILDE CARTER APRN) Heart Score: Risk Factors: Risk Factors: DM, Current or recent (<one month) smoker, HTN, HLP, family history of CAD, obesity. Risk Scores: Score 0 - 3: 2.5% MACE over next 6 weeks - Discharge Home Score 4 - 6: 20.3% MACE over next 6 weeks - Admit for Clinical Observation Score 7 - 10: 72.7% MACE over next 6 weeks - Early Invasive Strategies (MATILDE CARTER APRN) Allergies: Allergies: Allergies Coded Allergies Type Severity Reaction Last Updated Verified Penicillins Allergy Intermediate hives 02/23/15 Yes (MATILDE CARTER APRN) Physical Exam: PE: Constitutional: Well developed, well nourished, no acute distress, non-toxic appearance. [] HENT: Normocephalic, atraumatic, bilateral external ears normal, oropharynx moist, no oral exudates, small scab in right nare, turbinates swollen, frontal and maxillary bilateral sinuses tender to palp. [] Eyes: PERRLA, EOMI, conjunctiva normal, no discharge. [] Neck: Normal range of motion, no tenderness, supple, no stridor. [] Cardiovascular:Heart rate regular rhythm, no murmur [] Lungs & Thorax: Bilateral breath sounds clear to auscultation [] Skin: Warm, dry, no erythema, no rash. [] Neurologic: Alert and oriented X 3, normal motor function, normal sensory function, no focal deficits noted. [] Psychologic: Affect normal, judgement normal, mood normal. [] (MATILDE CARTER APRN) Current Patient Data: Vital Signs: Vital Signs Date Time Temp Pulse Resp B/P (MAP) Pulse Ox O2 Delivery O2 Flow Rate FiO2 03/03/20 18:20 98.6 78 18 121/90 (100) 97 Room Air 98.6 (MATILDE CARTER APRN) EKG: EKG: [] (MATILDE CARTER APRN) Radiology/Procedures: Radiology/Procedures: [] (MATILDE CARTER APRN) Course & Med Decision Making: Course & Med Decision Making Pertinent Labs and Imaging studies reviewed. (See chart for details) [Discussed Bactroban ointment for sore inside nose, will provide antibiotic for 7-day history of sinusitis, patient to follow-up with primary care doctor, verbalized understanding of discharge instructions. Stable for discharge home.] (MATILDE CARTER APRN) Dragon Disclaimer: Dragon Disclaimer: This electronic medical record was generated, in whole or in part, using a voice recognition dictation system. (MATILDE CARTER APRN) Departure Departure Impression: Primary Impression: Sinusitis Qualified Codes: J01.00 - Acute maxillary sinusitis, unspecified Additional Impression: Sore in nostril Disposition: HOME, SELF-CARE Condition: STABLE Referrals: DOLLY PRUETT MD (PCP) Patient Instructions: Sinusitis, [id number] Scripts Doxycycline Hyclate (DOXYCYCLINE HYCLATE) 100 Mg Capsule 1 CAP PO BID, #14 CAP Prov: MATILDE CARTER APRN 03/03/20 Mupirocin (MUPIROCIN OINTMENT) 22 Gm Oint...g. 1 DAVID TP TID for WOUND CARE, #1 TUBE Prov: MATILDE CARTER APRN 03/03/20 Justicifation of Admission Dx: Justifications for Admission: Justification of Admission Dx: N/A (MATILDE CARTER APRN) Attending Signature Attending Signature I have participated in the care of this patient and I have reviewed and agree with all pertinent clinical information above including history, exam, and recommendations. (EZEKIEL OROSCO DO) MATILDE CARTER APRN Mar 03, 2020 18:29 EZEKIEL OROSCO DO Mar 03, 2020 23:14
== END 2020-03-03 18:45 | disposition home or self-care (01) ==
LOC: ER 17:42
DX: J01.00 Acute maxillary sinusitis, unspecified (principal); R09.81 Nasal congestion; I10 Essential (primary) hypertension; Z88.0 Allergy status to penicillin
CPT/HCPCS: 99283

== ENCOUNTER 2020-03-11 20:18 | Emergency (ER) | payer MEDICAID ==
[~2020-03-11] VITALS: Ht 165.1 cm; Wt 75.0 kg
[~2020-03-11 20:18] MED LIST changes: +DOXY100C2 PO; +MUPI22OI2 TP
[2020-03-11 20:35] VITALS: BP 191/94
--- NOTE | 2020-03-11 20:54 | PHYS DOC ---
Past Medical History Past Medical History: Hypertension Additional Past Medical Histor: CHRONIC H/A Past Surgical History: No Surgical History Smoking Status: Never Smoker Alcohol Use: None Drug Use: None General Adult EDM: Chief Complaint: SKIN PROBLEM HPI: HPI: Patient is a 59 year old female who presents with a red rash to bilateral forearms and back of neck that started 2 days ago. Patient reports that she believes she got into some poison oak or neal because she has had it in the past. Patient reports that rash is itchy and painful. She took Benadryl last night. She rates the pain 5 out of 10. No alleviating factors, aggravated by sweating/being hot. Review of Systems: Review of Systems: Constitutional: Denies fever or chills. [] Musculoskeletal: Denies back pain or joint pain. [] Integument: See HPI Psychiatric: Denies depression or anxiety. [] Heart Score: Risk Factors: Risk Factors: DM, Current or recent (<one month) smoker, HTN, HLP, family history of CAD, obesity. Risk Scores: Score 0 - 3: 2.5% MACE over next 6 weeks - Discharge Home Score 4 - 6: 20.3% MACE over next 6 weeks - Admit for Clinical Observation Score 7 - 10: 72.7% MACE over next 6 weeks - Early Invasive Strategies Allergies: Allergies: Allergies Coded Allergies Type Severity Reaction Last Updated Verified Penicillins Allergy Intermediate hives 02/23/15 Yes Physical Exam: PE: Constitutional: Well developed, well nourished, no acute distress, non-toxic appearance. [] HENT: Normocephalic, atraumatic, bilateral external ears normal, nose normal. [] Eyes: PERRLA, EOMI, conjunctiva normal, no discharge. [] Neck: Normal range of motion, no stridor. [] Cardiovascular:Heart rate regular rhythm Lungs & Thorax: Respirations even and unlabored, no retractions, no respiratory distress Skin: Warm, dry; erthematous patchy and raised rash noted to bilateral forearms and the back of patient's neck correlating with contact dermatitis, no crusting of lesion or drainage. [] Extremities: No cyanosis, ROM intact, no edema. [] Neurologic: Alert and oriented X 3, no focal deficits noted. [] Psychologic: Affect normal, judgement normal, mood normal. [] Current Patient Data: Vital Signs: Vital Signs Date Time Temp Pulse Resp B/P (MAP) Pulse Ox O2 Delivery O2 Flow Rate FiO2 03/11/20 20:35 99.0 63 16 191/94 (126) 98 Room Air 99.0 EKG: EKG: [] Radiology/Procedures: Radiology/Procedures: [] Course & Med Decision Making: Course & Med Decision Making Pertinent Labs and Imaging studies reviewed. (See chart for details) [] Dragon Disclaimer: Dragon Disclaimer: This electronic medical record was generated, in whole or in part, using a voice recognition dictation system. Departure Departure Impression: Primary Impression: Contact dermatitis Qualified Codes: L25.9 - Unspecified contact dermatitis, unspecified cause Disposition: HOME, SELF-CARE Condition: STABLE Referrals: DOLLY PRUETT MD (PCP) Patient Instructions: Contact Dermatitis, [id number] Additional Instructions: Fill the prescription(s) and take as directed. You may take Benadryl 1-2 caps every 6 Hours As Needed for Itching. Wash All Clothing and Bedding in Hot Water. Follow up with primary care doctor if symptoms persist, return to ER if symptoms worsen. Scripts Prednisone (PREDNISONE) 20 Mg Tablet 1 TAB PO UD for 12 Days, #15 TAB 2 tabs by mouth days 1,2,3 then 1.5 tabs by mouth days 4,5,6 then 1 tab by mouth days 7,8,9 then 0.5 tab by mouth day 10,11,12 Prov: NIEVES CRISOSTOMO APRN 03/11/20 Justicifation of Admission Dx: Justifications for Admission: Justification of Admission Dx: N/A NIEVES CRISOSTOMO APRN Mar 11, 2020 20:54
[2020-03-11] MEDS ORDERED: PRED20TA PO (20:58)
[2020-03-11] MEDS ORDERED: predniSONE 10 MG TABLET PO ONE (21:30)
== END 2020-03-11 21:15 | disposition home or self-care (01) ==
LOC: ER 20:18
DX: L23.7 Allergic contact dermatitis due to plants, except food (principal); R21 Rash and other nonspecific skin eruption; I10 Essential (primary) hypertension; Z88.0 Allergy status to penicillin
CPT/HCPCS: 99283; J7512

== ENCOUNTER 2020-12-16 18:49 | Emergency (ER) | payer MEDICAID ==
[~2020-12-16] VITALS: Ht 167.6 cm; Wt 72.7 kg
[2020-12-16 20:24] VITALS: BP 171/99
[2020-12-16 20:46] LABS: BILIRUBIN,URINE NEGATIVE (NEG); CLARITY,URINE CLEAR; COLOR,URINE YELLOW; NITRITE,URINE NEGATIVE (NEG); PH,URINE 5.5 (<5.0-8.0); PROTEIN,URINE NEGATIVE (NEG-TRACE); UROBILINOGEN,URINE 0.2 mg/dL (0.2 mg/dL)
[2020-12-16 20:56] LABS: BACTERIA,URINE FEW /HPF (0-FEW); RBC,URINE 0 /HPF (0-2)
[2020-12-16] MEDS ORDERED: NITR100C62 PO (21:06)
[2020-12-16] MEDS ORDERED: PHEN100T82 PO (21:06)
--- NOTE | 2020-12-16 21:06 | PHYS DOC ---
Past Medical History Past Medical History: Anxiety, Hypertension Additional Past Medical Histor: CHRONIC H/A, insomnia ([employer]) Past Surgical History: Other Additional Past Surgical Histo: Laproscopy (J[employer]) Smoking Status: Never Smoker Alcohol Use: None Drug Use: None (JAN WEBER APRN) General Adult EDM: Chief Complaint: PAIN ON URINATION HPI: HPI: Patient is a 60 year old female who presents with patient states her last 3 days she has had burning with urination, urinary frequency, low back pain bilaterally and low mid abdominal pressure type pain. She rates her pain a 5 ou t of 10. She denies fever, nausea, vomiting, diarrhea, shortness of breath, chest pain, urinary retention. He states this feels exactly like her past urinary tract infection. (J[employer]) Review of Systems: Review of Systems: Constitutional: Denies fever or chills. [] Eyes: Denies change in visual acuity. [] HENT: Denies nasal congestion or sore throat. [] Respiratory: Denies cough or shortness of breath. [] Cardiovascular: Denies chest pain or edema. [] GI: + abdominal pain, denies nausea, vomiting, bloody stools or diarrhea. [] : Denies dysuria. [] Musculoskeletal: + Bilateral lower back pain or denies joint pain. [] Integument: Denies rash. [] Neurologic: Denies headache, focal weakness or sensory changes. [] Endocrine: Denies polyuria or polydipsia. [] Lymphatic: Denies swollen glands. [] Psychiatric: Denies depression or anxiety. [] ([employer]) Heart Score: C/O Chest Pain: No Risk Factors: Risk Factors: DM, Current or recent (<one month) smoker, HTN, HLP, family history of CAD, obesity. Risk Scores: Score 0 - 3: 2.5% MACE over next 6 weeks - Discharge Home Score 4 - 6: 20.3% MACE over next 6 weeks - Admit for Clinical Observation Score 7 - 10: 72.7% MACE over next 6 weeks - Early Invasive Strategies (JAN WEBER APRN) Allergies: Allergies: Allergies Coded Allergies Type Severity Reaction Last Updated Verified Penicillins Allergy Intermediate hives 02/23/15 Yes [facility] Physical Exam: PE: Constitutional: Well developed, well nourished, no acute distress, non-toxic appearance. [] HENT: Normocephalic, atraumatic, bilateral external ears normal, oropharynx moist, no oral exudates, nose normal. [] Eyes: PERRLA, EOMI, conjunctiva normal, no discharge. [] Neck: Normal range of motion, no tenderness, supple, no stridor. [] Cardiovascular:Heart rate regular rhythm, no murmur [] Lungs & Thorax: Bilateral breath sounds clear to auscultation [] Abdomen: Bowel sounds normal, soft, bilateral low mid tenderness, no masses, no pulsatile masses. [] Skin: Warm, dry, no erythema, no rash. [] Back: No tenderness, no CVA tenderness. [] Extremities: No tenderness, no cyanosis, no clubbing, ROM intact, no edema. [] Neurologic: Alert and oriented X 3, normal motor function, normal sensory function, no focal deficits noted. [] Psychologic: Affect normal, judgement normal, mood normal. [] ([facility] Current Patient Data: Labs: Laboratory Tests Test 12/16/20 20:32 Urine Collection Type Unknown Urine Color Yellow Urine Clarity Clear Urine pH 5.5 (<5.0-8.0) Urine Specific [place] 1.025 (1.000-1.030) Urine Protein Negative mg/dL (NEG-TRACE) Urine Glucose (UA) Negative mg/dL (NEG) Urine Ketones (Stick) Negative mg/dL (NEG) Urine Blood Negative (NEG) Urine Nitrite Negative (NEG) Urine Bilirubin Negative (NEG) Urine Urobilinogen Dipstick 0.2 mg/dL (0.2 mg/dL) Urine Leukocyte Esterase Small (NEG) Urine RBC 0 /HPF (0-2) Urine WBC 11-20 /HPF (0-4) Urine Squamous Epithelial Cells Mod /LPF Urine Bacteria Few /HPF (0-FEW) Urine Mucus Mod /LPF Vital Signs: Vital Signs Date Time Temp Pulse Resp B/P (MAP) Pulse Ox O2 Delivery O2 Flow Rate FiO2 12/16/20 20:24 98.3 90 18 171/99 (123) 97 Room Air 98.3 (JAN WEBER APRN) EKG: EKG: [] (JAN WEBER APRN) Radiology/Procedures: Radiology/Procedures: [] (JAN WEBER APRN) Course & Med Decision Making: Course & Med Decision Making Pertinent Labs and Imaging studies reviewed. (See chart for details) See HPI. Alert and oriented x4. Ambulatory with a steady gait. No CVA tenderness. Abdomen is soft but slightly tender to low mid abdomen of which patient states it feels like a pressure type pain. Vital signs within normal limits. Afebrile. Speaks in full clear sentences. Skin pink warm and dry. Urinalysis shows infection. She is placed on Macrobid and given Pyridium. [] (JAN WEBER APRN) Course & Med Decision Making The patient was seen and interviewed as well as examined at the bedside. The chart was reviewed. The case was discussed. Agree with the plan of care. (EBNSON SOLITARIO DO) Dragon Disclaimer: [place] Disclaimer: This electronic medical record was generated, in whole or in part, using a voice recognition dictation system. (JAN WEBER APRN) Departure Departure Impression: Primary Impression: Urinary tract bacterial infections Disposition: HOME / SELF CARE / HOMELESS Condition: STABLE Referrals: DOLLY PRUETT MD (PCP) Patient Instructions: Urinary Tract Infection Additional Instructions: Follow-up with primary care provider. Drink plenty of fluids. Take medication as prescribed and with food. If your symptoms worsen return emergency room. Scripts Phenazopyridine Hcl (PYRIDIUM) 100 Mg Tablet 1 TAB PO TID for urinary discomfort for 2 Days, #6 TAB 0 Refills Prov: JAN WEBER APRN 12/16/20 Nitrofurantoin Monohyd/M-Cryst (MACROBID 100 MG CAPSULE) 100 Mg Capsule 1 CAP PO BID for 7 Days, #14 CAP 0 Refills Prov: JAN WEBER APRN 12/16/20 JAN WEBER APRN Dec 16, 2020 21:06 BENSON SOLITARIO DO Dec 17, 2020 19:40
[2020-12-16] MEDS ORDERED: PHENAZOPYRIDINE 200 MG TABLET. PO ONE (22:00)
[2020-12-16] MEDS ORDERED: NITROFURANTOIN MONOHYD/M-CRYST 100 MG CAPSULE. PO ONE (22:00)
== END 2020-12-16 21:24 | disposition home or self-care (01) ==
LOC: ER 18:49
DX: N39.0 Urinary tract infection, site not specified (principal); B96.89 Other specified bacterial agents as the cause of diseases classified elsewhere; I10 Essential (primary) hypertension; G89.29 Other chronic pain; Z88.0 Allergy status to penicillin
CPT/HCPCS: 81001; 87086; 99283